=== PATIENT | male | born 1985 | race Caucasian/White ===

== ENCOUNTER 2025-06-08 06:30 | Emergency (ER) | payer SELFPAY ==
[~2025-06-08] VITALS: Ht 175.3 cm; Wt 98.8 kg
[2025-06-08 06:44] VITALS: TEMP 98
--- NOTE | 2025-06-08 06:56 | Physician Documentation ---
History of Present Illness General Chief Complaint: Flank Pain Stated Complaint: MULTIPLE COMPLAINTS Time Seen by MD: 06:55 History of Present Illness Initial Comments The patient is a 40-year-old male who complains of right testicular swelling over the last three days. Patient states over the last two weeks he has had bilateral flank pain and some urinary symptoms to include dysuria and some hesitancy and frequency. Patient states he was treated with antibiotics twice for urinary tract infection but he states that now he has moderate pain that is constant and swelling to the right testicle. He states this has been going on for last 3-4 days. The patient denies any fevers or chills he denies any nausea or vomiting his symptoms are moderate and persistent Medication Reconciliation Allergies: Coded Allergies: No Known Allergies (Unverified , 06/08/25) Scheduled Cefpodoxime Proxetil (Vantin), 1 TAB PO Q12H Doxycycline Monohydrate (Doxycycline Monohydrate), 100 MG PO BID Past Medical History Past Medical History: No Pertinent History Review of Systems All Other Systems at this time: Reviewed and Negative Physical Exam Physical Exam Vital Signs: Temperature: 98.0, Source: Temporal, Heart Rate: 98, Respiratory Rate: 16, BP: 145/78, Pulse Oximetry: 97, Weight: 98.800 Oxygen Flow Rate: 0 Physical Exam VITALS: Reviewed and as above. GENERAL: Alert, no apparent distress. HEENT: Normocephalic, atraumatic, PERRL, EOMI, dry mucosa, no erythema RESPIRATORY: Lungs clear, normal breath sounds, no respiratory distress. CHEST: No accessory muscle use, no retractions CV: Regular rate, rhythm, no edema, no murmur, No: JVD GI: Soft, non-tender, bowels sounds present, no rebound, guarding, or rigidity the patient's right testicle is enlarged to a proximally 6 x 3 cm with overlying scrotal erythema the left testicle is proximally 5 x 2-1/2 BACK: No CVA tenderness, or swelling MUSCULOSKELETAL: No deformities, no edema SKIN: Warm and dry, no rash NEURO: Oriented x4, No motor or sensory deficit PSYCH: Normal mood and affect, no agitation Progress Results/Orders Results/Orders Orders - [facility],SU Garsia MD Us Testic/W/Duplex (06/08/25 07:20) Cult Urine + [place] [address] (06/08/25 08:42) Completed Orders - SU HOPKINS MD Ceftriaxone 2gm/D5w 50ml Bag (Rocephin 2 (06/08/25 07:10) Ketorolac Trometh 15mg/Ml Vial (Toradol (06/08/25 07:10) Us Testic/W/Duplex (06/08/25 07:20) Ua W/Microscopic, Cult If Ind (06/08/25 07:20) Vital Signs 06/08/25 06/08/25 06/08/25 06/08/25 06:44 07:45 08:13 08:40 Temp 98.0 Pulse 98 82 89 Resp 16 18 20 18 B/P (MAP) 145/78 100/63 (75) 110/55 Pulse Ox 97 94 94 O2 Flow Rate 0 0 Laboratory Tests Test 06/08/25 07:20 Urine Specimen Description Cln catch midstream Urine Color Yellow Urine Clarity Slightly cloudy Urine pH 6.0 Urine Specific [place] 1.025 Urine Protein Trace Urine Glucose (UA) Negative Urine Ketones Negative Urine Occult Blood Small Urine Nitrite Positive H Urine Bilirubin Negative Urine Urobilinogen 0.2 Urine Leukocyte Esterase Small H Urine RBC 3-10 Urine WBC Tntc H Urine Squamous Epithelial Cells Few Urine Bacteria 4+ Urine Culture Indicated Indicated Volume Urine Centrifuged 10 ml Urine Comment Microbiology Date/Time Source Procedure Growth Status 06/08/25 08:42 Urine Clean Catch Midstream Urine Culture - Preliminary Culture received. Resulted EKG/XRAY/CT/US/VASC/MRI Ultrasound : Impression Patient: AKIRA CALDERON Medical Record: [id number] [facility] : 1985, Age: 40 Sex: Male Location: ER Patient Status: [facility] ER Service Date/Time: 06/08/25719 Ordering Physician: SU HOPKINS MD Exam: US TESTIC/W/DUPLEX CLINICAL INFORMATION: Testicular pain. TECHNIQUE: Grayscale sonographic imaging of the testicles and scrotal contents was performed , assisted by color doppler technique. Duplex doppler ultrasound of both testicles was performed. COMPARISON: None FINDINGS: The right testicle measures 4.4 x 2.9 x 3.3 cm, within normal limits. Unremarkable echogenicity of the right testicle. Arterial and venous blood flow demonstrated. Small right epididymal head cyst measuring up to 0.4 cm in greatest dimension. There is a moderate hydrocele with septation visualized. No varicocele. The left testicle measures 3.6 x 2.6 x 3.1 cm, within normal limits. Unremarkable echogenicity of the left testicle. Arterial and venous blood flow demonstrated. Unremarkable epididymis. No hydrocele or varicocele. IMPRESSION: 1. No sonographic evidence of testicular torsion. 2. Moderate right hydrocele with septation. 3. Small right epididymal cyst. Electronically Signed by:VU FORRESTER DO Date & Time: 06/08/25846 Dictated by: VU FORRESTER DO Dictation date and time: 06/08/25846 Primary Care Provider: NO PRIMARY CARE PROVIDER cc: SU HOPKINS MD ~ Medical Decision Making Additional information obtaine: old records Findings 40-year-old male complains of right testicular swelling and the patient has a large right testicle which is tender and has a overlying scrotal erythema and slight edema, the ultrasound findings were reviewed, the patient has a history of urinary tract infections he also clinically has epididymitis, there was no evidence of torsion. The patient was treated with ceftriaxone in the emergency room the patient will be discharged on doxycycline and antibiotics for a urinary tract infection for two weeks. The patient's pulse oximetry was interpreted as adequate and normal. Differential Diagnosis Orchitis, urethritis, epididymitis Departure Time of Disposition: 08:29 Disposition: 01 HOME / SELF CARE / HOMELESS Impression: Primary Impression: Acute urinary tract infection Additional Impression: Epididymitis due to infection Discharge Instructions: Epididymitis, Urinary Tract Infection, Adult Referrals: NO PRIMARY CARE PROVIDER (PCP) Prescriptions Cefpodoxime Proxetil (Vantin) 200 Mg Tablet 1 TAB PO Q12H for 21 Days, #42 TAB Prov: SU HOPKINS MD 06/08/25 Doxycycline Monohydrate (Doxycycline Monohydrate) 100 Mg Capsule 100 MG PO BID, #14 CAP may sub doxycycline hyclate Prov: SU HOPKINS MD 06/08/25 Signature Scribe Signature: no scribe Attestation: The note accurately reflects work and decisions made by me.Su Hopkins MD 06/09/25 07:47 SU HOPKINS MD Jun 08, 2025 06:56
[2025-06-08] MEDS: CefTRIAXone 2gm/D5W 50ml BAG 50 ML IV ONE (07:43)
[2025-06-08] MEDS: ketorolac trometh 15mg/ml vial 15 MG/ML ML IV ONE (07:45)
[2025-06-08 08:20] LABS: LEUKOCYTE ESTERASE ,URINE SMALL (Neg); NITRITES, URINE POSITIVE (Neg); OCCULT BLOOD,URINE SMALL (Neg)
[2025-06-08 08:23] LABS: UA COLLECTION TYPE CLN CATCH MIDSTREAM
[2025-06-08] MEDS ORDERED: CEFP200T13 PO (08:28)
[2025-06-08] MEDS ORDERED: DOXY100C43 PO (08:28)
[2025-06-08 08:40] VITALS: BP 110/55; PULSE 89; RESP 18; O2SAT 94
[2025-06-08 08:41] LABS: SQUAMOUS EPITHELIAL CELL,UR FEW /LPF (FEW)
--- NOTE | 2025-06-08 08:49 | RADIOLOGY REPORT ---
CLINICAL INFORMATION: Testicular pain. TECHNIQUE: Grayscale sonographic imaging of the testicles and scrotal contents was performed , assisted by color doppler technique. Duplex doppler ultrasound of both testicles was performed. COMPARISON: None FINDINGS: The right testicle measures 4.4 x 2.9 x 3.3 cm, within normal limits. Unremarkable echogenicity of the right testicle. Arterial and venous blood flow demonstrated. Small right epididymal head cyst measuring up to 0.4 cm in greatest dimension. There is a moderate hydrocele with septation visualized. No varicocele. The left testicle measures 3.6 x 2.6 x 3.1 cm, within normal limits. Unremarkable echogenicity of the left testicle. Arterial and venous blood flow demonstrated. Unremarkable epididymis. No hydrocele or varicocele. IMPRESSION: 1. No sonographic evidence of testicular torsion. 2. Moderate right hydrocele with septation. 3. Small right epididymal cyst.
== END 2025-06-08 08:42 | disposition home or self-care (01) ==
LOC: ER 06:32
DX: N39.0 Urinary tract infection, site not specified (principal); N45.1 Epididymitis
CPT/HCPCS: 76870; 81001; 87088; 93976; 96365; 96375; 99285; J0696; J1885; 87077; 87186